=== PATIENT | male | born 2000 | race Two or more races ===

== ENCOUNTER 2022-02-17 11:35 | Emergency (ER) | payer OTHER ==
[~2022-02-17] VITALS: Ht 180.3 cm; Wt 100.0 kg
[2022-02-17 11:41] VITALS: BP 150/51
== END 2022-02-17 18:20 | disposition left against medical advice (07) ==
LOC: ER 11:36
DX: L02.414 Cutaneous abscess of left upper limb (principal); Z53.21 Procedure and treatment not carried out due to patient leaving prior to being seen by health care provider